=== PATIENT | female | born 2000 ===

== ENCOUNTER 2023-04-18 18:42 | Outpatient (REF) | payer MEDICAID, SELFPAY ==
[2023-04-24 23:48] LABS: C. trachomatis RNA TMA NOT DETECTED (NOT DETECTED); N. gonorrhoeae RNA TMA NOT DETECTED (NOT DETECTED)
[2023-04-25 00:03] LABS: Trichomonas (NAAT) NOT DETECTED (NOT DETECTED)
== END 2023-04-18 18:43 | disposition home or self-care (01) ==
LOC: HO.HHCLNP 18:42
PROVIDERS: Visit Provider Advanced Practice Midwife
DX: Z01.419 Encounter for gynecological examination (general) (routine) without abnormal findings (principal); Z11.3 Encounter for screening for infections with a predominantly sexual mode of transmission
CPT/HCPCS: 36415; 87491; 87591; 87661; 88142

== ENCOUNTER 2023-06-07 11:26 | Outpatient (REF) | payer MEDICAID, SELFPAY ==
[2023-06-07 15:24] LABS: Alanine Aminotransferase 50 U/L (0-31); Albumin Level 4.3 g/dL (3.5-5.0); Alkaline Phosphatase 85 U/L (39-117); Anion Gap 11 (12-20); Aspartate Amino Transferase 35 U/L (5-31); Bilirubin Direct 0.1 mg/dL (0.0-0.5); Bilirubin Total 0.3 mg/dL (0.0-1.0); Blood Urea Nitrogen 11 mg/dL (9-16); Calcium 9.4 mg/dL (8.4-10.2); Carbon Dioxide 26 mmol/L (22-29); Chloride 104 mmol/L (96-108); Cholesterol 176 mg/dL (<200); Estimated Glomerular Filt Rate > 60; Glucose Random 92 mg/dL (60-115); HDL Cholesterol 33 mg/dL (>40); LDL Cholesterol Calculated 87 mg/dL (<100); Sodium 137 mmol/L (135-145); Total Protein 7.9 g/dL (6.5-8.0); Triglycerides 281 mg/dL (<150)
== END 2023-06-07 11:27 | disposition home or self-care (01) ==
LOC: HO.CHCLDS 11:26
PROVIDERS: Visit Provider Student in an Organized Health Care Education/Training Program
DX: R03.0 Elevated blood-pressure reading, without diagnosis of hypertension (principal)
CPT/HCPCS: 36415; 80048; 80061; 80076

== ENCOUNTER 2024-02-15 08:46 | Outpatient (REF) | payer MEDICAID, SELFPAY ==
[2024-02-15 14:03] LABS: MANUAL DIFF FLAG NO
[2024-02-15 14:11] LABS: Basophils Percent Auto 0.6 % (0-2); Eosinophils Absolute Auto 0.2 X10*3/uL (0.0-0.4); Eosinophils Percent Auto 3.5 % (0-4); Hematocrit 38.5 % (37.0-47.0); Hemoglobin 12.1 g/dl (12.0-16.0); Imm Gran Abs Auto 0.03 X10*3/uL (0.00-0.03); Imm Gran Pct Auto 0.5 % (0.0-0.4); Lymphocytes Absolute Auto 2.3 X10*3/uL (1.2-4.9); Lymphocytes Percent Auto 36.9 % (20-40); Mean Corpuscular HGB Conc 31.4 g/dl (31.0-35.0); Mean Corpuscular Hemoglobin 25.8 pg (27.0-33.0); Mean Corpuscular Volume 82.1 fL (80.0-98.0); Mean Platelet Volume 10.4 fL (9.4-12.3); Monocytes Absolute Auto 0.5 X10*3/uL (0.1-1.2); Monocytes Percent Auto 7.4 % (2-11); Neutrophils Absolute Auto 3.2 x10*3/uL (2.0-8.3); Neutrophils Percent Auto 51.1 % (45-73); Platelet Count 364 X10*3/uL (160-400); Red Blood Count 4.69 X10*6/uL (4.20-5.50); Red Cell Distribution Width 15.3 % (11.0-16.0); White Blood Count 6.2 X10*3/uL (4.8-10.8)
[2024-02-15 14:54] LABS: Albumin Level 4.2 g/dL (3.5-5.0); Alkaline Phosphatase 94 U/L (39-117); Aspartate Amino Transferase 31 U/L (5-31); Bilirubin Direct < 0.2 mg/dL (0.0-0.5); Bilirubin Total 0.2 mg/dL (0.0-1.0); Cholesterol 181 mg/dL (<200); HDL Cholesterol 36 mg/dL (>40); LDL Cholesterol Calculated 119 mg/dL (<100); Total Protein 7.8 g/dL (6.5-8.0); Triglycerides 131 mg/dL (<150)
[2024-02-15 14:55] LABS: Estimated Average Glucose 123 mg/dL; Hemoglobin A1C 129.5511 umol/L; Hemoglobin A1c % 5.9 % (<6.0); Total Hemoglobin (HGBA1C) 3187.3801 umol/L
[2024-02-15 15:00] LABS: TSH reflex Free T4 1.07 uIU/mL (0.32-4.0)
[2024-02-15 15:14] LABS: Alanine Aminotransferase 29 U/L (0-31)
[2024-02-15 16:08] LABS: CT PCR NOT DETECTED (Not Detect.); NG PCR NOT DETECTED (Not Detect.)
[2024-02-16 04:25] LABS: HIV AB/AG Nonreactive (Nonreactive); HIV Num 1 0.08 S/CO (0.00-0.99); ~HepC Num1 0.13 S/CO (0.00-0.79); ~Hepatitis C Antibody Nonreactive (Nonreactive)
== END 2024-02-15 08:47 | disposition home or self-care (01) ==
LOC: HO.CHCLDS 08:46
PROVIDERS: Internal Medicine; PCP Student in an Organized Health Care Education/Training Program; Referring Provider Pediatrics; Visit Provider Student in an Organized Health Care Education/Training Program
DX: E78.00 Pure hypercholesterolemia, unspecified (principal); F41.8 Other specified anxiety disorders; Z11.3 Encounter for screening for infections with a predominantly sexual mode of transmission; L64.9 Androgenic alopecia, unspecified
CPT/HCPCS: 36415; 80061; 80076; 83036; 84443; 85025; 86803; 87389; 87491; 87591